=== PATIENT | female | born 1985 | race Caucasian/White ===

== ENCOUNTER 2019-07-05 15:04 | Inpatient (IN) | payer SELFPAY ==
[~2019-07-05 15:04] MED LIST: PHENYLEPHRINE HCL INJ/PF 10 MG/1 ML SDV ONE
[2019-07-05 16:17] LABS: ABSOLUTE EOSINOPHILS # (AUTO) 0.1 10^3/uL (0.0-0.6); ABSOLUTE LYMPHOCYTES (AUTO) 2.3 10^3/uL (0.5-4.7); ABSOLUTE MONOCYTES (AUTO) 0.9 10^3/uL (0.1-1.4); ABSOLUTE NEUT (AUTO) 8.9 10^3/uL (1.7-8.2); BASOPHILS % (AUTO) 0.2 % (0-2); EOSINOPHILS % (AUTO) 0.7 % (0-6); HEMOGLOBIN 11.7 g/dL (12.0-15.5); LYMPHOCYTES % (AUTO) 18.9 % (13-45); MEAN CORPUSCULAR HEMOGLOBIN 33.2 pg (27.0-33.4); MEAN CORPUSCULAR HGB CONC 36.6 g/dL (32.0-36.0); MEAN CORPUSCULAR VOLUME 91 fl (80-97); MONOCYTES % (AUTO) 7.2 % (3-13); PLATELET COUNT 335 10^3/uL (150-450); RED BLOOD COUNT 3.53 10^6/uL (3.72-5.28); RED CELL DISTRIBUTION WIDTH 14.6 % (11.5-14.0); TOTAL CELLS COUNTED % (AUTO) 100 %; WHITE BLOOD COUNT 12.2 10^3/uL (4.0-10.5)
[2019-07-05 16:20] LABS: APPEARANCE,URINE CLOUDY; BILIRUBIN,URINE NEGATIVE (NEGATIVE); COLOR,URINE AMBER; GLUCOSE, URINE NEGATIVE (NEGATIVE); KETONES,URINE NEGATIVE (NEGATIVE); LEUKOCYTE ESTERASE,URINE TRACE (NEGATIVE); NITRITE,URINE NEGATIVE (NEGATIVE); PROTEIN,URINE 100 mg/dL (NEGATIVE); URINE SPECIFIC GRAVITY 1.023; UROBILINOGEN,URINE NEGATIVE mg/dL (<2.0)
[2019-07-05 16:37] LABS: URINE AMPHETAMINES SCREEN NEGATIVE; URINE BARBITURATES SCREEN NEGATIVE; URINE BENZODIAZEPINES SCREEN NEGATIVE; URINE COCAINE SCREEN NEGATIVE; URINE MARIJUANA (THC) SCREEN NEGATIVE; URINE METHADONE SCREEN NEGATIVE; URINE PHENCYCLIDINE SCREEN NEGATIVE
[2019-07-05] MEDS ORDERED: PENICILLIN G-K 5 MILLION UNIT VIAL ONE (17:20)
--- NOTE | 2019-07-05 17:31 | Admission Physical ---
Datetime Report Generated by CPN: 07/05/2019 17:31 CURRENT ADMISSION Chief Complaint: Uterine Contractions; Suspected Ruptured Membranes Chief Complaint Other: 34 yo at unknown gestational age-she has had no care and delivered last baby 13 years ago at [facility] at which time she had failure to progress after dilation to 6 cm. She denies LOF or VB but was noted to have fluid on vaginal exam here and Actim prom was positive here. She reports no PNC, taking PNV, no medical history other than CS x1 as above. NO other surgeries. No hx of alcohol or drug use per patient. Admit Impression : Active Labor; Ruptured Membranes Admit Plan: Admit to Unit; Initiate Labor Protocol ALLERGIES Medication Allergies: No Known Allergies (07/05/2019) PHYSICAL EXAM General: Normal HEENT: Normal Neurologic: Normal Thyroid: Normal Heart: Normal Lungs: Normal Breast: Normal Back: Normal Abdomen: Normal Genitourinary Exam: Normal Extremities: Normal DTRs: Normal Pelvic Type: Adequate Vital Signs: Reviewed VAGINAL EXAM Dilatation: 1 Effacement: 25 Station: -3 Contraction Comments: irregular MEMBRANES Pooling: Positive Membranes: Ruptured Amniotic Fluid Color: Clear FETUS A Monitoring: External US FHR- Baseline: 125 Variability: Moderate 6-25bpm Accelerations: 15X15 Decelerations: None FHR Category: Category I FHR Comments: GBS unknown Presentation: Vertex Admit Comment: 34 yo at unknown gestational age. SHe states LMP was sometime in early September and by her estimates she is 41 weeks. Early September would actually make her approximately 39 weeks EGA SHe has ruptured membranes, clear fluid and corinna. Hx of PCS without records. Nursing is trying to get records of her CS. IF able to do so and transverse uterine scar, then patient desires TOLAC. -Admit to LDR -NPO and IVFs -PCN for GBS unknown -Will attempt to get records of prior CS. If unable will plan RCS -CEFM and toco -LAbs ordered, including type and screen with labs -Desires epidural if TOLAC is possible. Plans breast feeding. INFORMED CONSENT Informed Consent Obtained: Vaginal Delivery; Section Delivery; Vaginal After ; Vacuum/Forceps Assist; Risks, Benefits and Alternatives Discussed Signature: with User ID: Kim : with User ID: Kim
[2019-07-05] MEDS ORDERED: PENICILLIN G POTASSIUM 5,000,000 UNIT in DEXTROSE 5%-WATER 100 ML IV ONE (17:42)
[2019-07-05 17:57] LABS: CHLAM PCR NOT DETECTED (NOT DETECT)
[2019-07-05] MEDS: RINGERS SOLUTION,LACTATED 1,000 ML IV PRN (18:00)
--- NOTE | 2019-07-05 19:13 | RADIOLOGY REPORT (SQ) ---
EXAM DESCRIPTION: U/S OB LIMITED COMPLETED DATE/TIME: 07/05/2019 6:54 pm REASON FOR STUDY: no care at 41 weeks (per pt) COMPARISON: None. TECHNIQUE: Limited transabdominal grayscale ultrasound for evaluation of specific requested obstetri james parameters. LIMITATIONS: None. FINDINGS: EGA: 38 week 6 day. GILBERTO: 07/13/2019. EFW: 3781 g. CERVIX: Not visualized. NICK: 3.4 cm. FHR: 131 beats per minute. PRESENTATION: Cephalic. PLACENTA: Fundal ANATOMY: Not assessed OTHER: No other significant findings. IMPRESSION: LIMITED OBSTETRICAL ULTRASOUND WITH MEASURED PARAMETERS DELINEATED ABOVE. Trimester of : Third trimester - 28 weeks to delivery. TECHNICAL DOCUMENTATION: JOB ID: [id number] 2010 [employer] All Rights Reserved Reading location - IP/workstation name: [email or web address]
[2019-07-05] MEDS ORDERED: CEFAZOLIN SODIUM 1 GM in DEXTROSE 5%-WATER 50 ML IV PRN (20:20)
[2019-07-05] MEDS ORDERED: CITRIC ACID/SODIUM CITRATE ORAL SOLN 15 ML UDCUP ONE (20:52)
[2019-07-05] MEDS ORDERED: CEFAZOLIN 1 GM/D5W RTU 2 GM/100 ML RTUPB IV ONE (20:53)
[2019-07-05] MEDS ORDERED: OXYTOCIN 10 UNIT/ML VIAL ONE (21:05)
[2019-07-05] MEDS ORDERED: FENTANYL CITRATE INJ/PF 100 MCG/2 ML AMPUL ONE (21:06)
[2019-07-05] MEDS ORDERED: KETOROLAC TROMETHAMINE INJ/PF 30 MG/1 ML SDV ONE (21:06)
[2019-07-05] MEDS ORDERED: ACETAMINOPHEN 1,000 MG/100 ML RTUPB IV ONE (21:06)
[2019-07-05] MEDS ORDERED: EPHEDRINE SULFATE INJ 50 MG/1 ML AMPULE ONE (21:06)
[2019-07-05] MEDS ORDERED: OXYTOCIN/NORMAL SALINE 20 UNIT/1,000 ML RTUINJ ONE (21:06)
[2019-07-05] MEDS ORDERED: MIDAZOLAM 2 MG/2 ML INJ ONE (21:06)
[2019-07-05] MEDS ORDERED: ONDANSETRON HCL INJ/PF 4 MG/2 ML SDV ONE (21:07)
[2019-07-05] MEDS ORDERED: LIDOCAINE 2% INJ-PF (20 MG/ML) 10 ML AMPUL ONE (21:17)
[2019-07-05] MEDS ORDERED: OXYCODONE-ACETAMINOPHEN 5-325 MG TABLET PO PRN ×4 (22:10→23:16)
[2019-07-05] MEDS ORDERED: FENTANYL CITRATE INJ/PF 100 MCG/2 ML AMPUL IV PRN ×2 (22:10)
[2019-07-05] MEDS ORDERED: PROMETHAZINE HCL INJ 25 MG/1 ML VIAL IV PRN ×2 (22:10→23:16)
[2019-07-05] MEDS ORDERED: DIPHENHYDRAMINE HCL 50 MG/ML VIAL IV PRN (22:10)
[2019-07-05] MEDS ORDERED: MORPHINE SULFATE 10 MG/ML INJ IV PRN (22:10)
[2019-07-05] MEDS ORDERED: ONDANSETRON HCL INJ/PF 4 MG/2 ML SDV IV PRN (22:10)
[2019-07-05] MEDS: PENICILLIN G POTASSIUM 2,500,000 UNIT in DEXTROSE 5%-WATER 50 ML IV SCH (23:01)
[2019-07-05] MEDS ORDERED: ACETAMINOPHEN 325 MG TABLET PO PRN (23:16)
[2019-07-05] MEDS ORDERED: OXYTOCIN/NORMAL SALINE 20 UNIT/1,000 ML RTUINJ IV PRN (23:16)
[2019-07-05] MEDS ORDERED: SIMETHICONE 80 MG TAB.CHEW PO PRN (23:16)
[2019-07-05] MEDS ORDERED: MEASLES,MUMPS&RUBELLA VACC/PF 0.5 ML VIAL SUBCUT PRN (23:16)
[2019-07-05] MEDS ORDERED: DIPH/PERTUSS(ACELL)/TETANUS VAC/PF 0.5 ML SYR (>=10YO) IM PRN (23:16)
[2019-07-05] MEDS ORDERED: HYDROMORPHONE HCL INJ/PF 2 MG/ML AMPULE IV PRN (23:16)
--- NOTE | 2019-07-05 23:30 | Operative Report ---
Operative Report DATE OF SURGERY: 07/05/19 PREOPERATIVE DIAGNOSIS: Intrauterine at 38.9 wks by US dating today. No care . History of prior section x1. Obesity POSTOPERATIVE DIAGNOSIS: Same as above with addition of adhesions between omentum and anterior uterus with additional filmy adhesions between anterior abdominal wall and uterus OPERATION: Repeat section ANESTHESIA: Spinal TISSUE REMOVED OR ALTERED: Placenta COMPLICATIONS: None ESTIMATED BLOOD LOSS: 600 INTRAOPERATIVE FINDINGS: Dense adhesions between omentum and anterior uterus with additional filmy adhesions between anterior abdominal wall and uterus. Meconium stained amniotic fluid. Viable male infant PROCEDURE: IV fluids: per anesthesia record Urinary output: 200 cc Findings: Dense adhesion between anterior uterus and omentum as well as filmy adhesions between anterior abdominal wall and uterus. Bladder adherent to lower uterus. Male . Meconium stained fluid. Position: To recovery room in stable condition Description of procedure: The patient was taken to the operating room and general anesthesia was administered and found to be adequate. She was then placed on the OR table in the supine position with a slight leftward tilt. Patient was prepped and draped in usual sterile fashion. Ancef 2 gms was given IV prior to the procedure for infection prophylaxis. Timeout was taken. A Pfannenstiel skin incision was then made approximately 3 cm above the pubic symphysis and carried down to level the rectus fascia. The rectus fascia was then nicked in the midline with a scalpel and the fascial incision was extended laterally with use of curved Stephen scissors. The rectus fascia was then grasped with 2 Kocker clamps elevated and the underlying rectus muscle was dissected off both bluntly and sharply. Any bleeding controlled with cautery. The rectus muscles were then split in the mid line and the peritoneum was entered. The peritoneal incision was then extended by manually stretching the peritoneum. The bladder blade was positioned. The bladder was noted to be adhesed to lower uterine segment and pick ups with metzenbaum scissors were used to take down these adhesions. Bladder was moved out of harms way and a bladder blade positioned. A scalpel was then used in the lower uterine for the hysterotomy, slowly until amniotomy was obtained a large amount of fluid was noted. The uterine incision was then manually stretched. The was noted to be in vertex postion -deep in the pelvis. Using a hand deep in pelvis, the head was elevated and brought to the hysterotomy incision. The head then delivered with minmal difficulty. The shoulders and the rest of the body followed immediately. The cord was cut clamped and the infant was handed off to the nurse awaiting. was crying prior to hand off. The placenta was manually delivered. Using a lap gauze the uterus was cleared of all clots and debris. The uterus was not able to be exteriorized due to adhesions above and a bladder blade was repositioned. The uterine incision was then closed with 0 Chromic suture in a running locked fashion. A second layer of the same suture was used in a running locked imbricated fashion. The uterine incision was inspected and noted to be hemostatic. Warm saline irrigation was used to clear all clots and debris from the abdomen. The uterine incision was inspected once more and noted to remain hemostatic. The bladder blade was removed and the peritoneumand rectus muscles were then reapproximated The rectus fascia was closed with a #1 PDS in a running fashion. The subcutaneous tissue was then inspected and any bleeding was controlled with Bovie electrocautery. The subcutaneous tissue was then closed with 2-0 Plain Gut suture in a running fashion. The skin was then closed with 3-0 Monocryl in a running subcuticular fashion. The skin incision was then clean dried and Dermabond was applied over the skin incision. All instrument sponge and needle counts were correct x3 for the procedure the patient tolerated the procedure well. She will proceed to recovery room in sta ble condition
[2019-07-05] MEDS ORDERED: MEPERIDINE HCL/PF INJ 25 MG/1 ML DISP.SYRIN ONE (23:32)
--- NOTE | 2019-07-05 23:32 | PDOC DELIVERY SUMMARY ---
Delivery Summary - Maternal Hx : II Hx Para: I Hx # Term Pregnancies: 1 Hx # Pregnancies: 0 Hx Total # of Abortions (Sponateous & Elective): 0 Number of Living Children: 1 Gestational Age: 38.9 Risk Factors: No Care Ruptured Membranes: SROM Fluids: Meconium Stained - Delivery Presentation: Vertex Heart Rate Monitoring: Externally Uterine Contraction Monitoring: External Support Person Present: Yes Location: OR : Repeat Placenta: Within Normal Limits Nuchal Cord: No Delivery of Placenta Date: 07/05/19 Estimated Blood Loss: 600 - Medications Type of Anesthesia:: Spinal
[2019-07-05] MEDS: MEPERIDINE HCL/PF INJ 25 MG/1 ML DISP.SYRIN IV PRN (23:34)
[2019-07-06] MEDS: MEPERIDINE HCL/PF INJ 25 MG/1 ML DISP.SYRIN IV PRN (00:06)
--- NOTE | 2019-07-06 01:04 | Delivery Summary ---
Del Sum A-C Datetime Report Generated by CPN: 07/06/2019 01:04 DELIVERY PERSONNEL DELIVERY PERSONNEL: [id number] Delivery Doctor:: Tamy Tucker MD Anesthesiologist:: Arcenio Pate MD MANAGER GENERATION:: Leigh Ann Iyer [employer] Grader:: Erika Uriarte, RN Police Surgeon/BUSINESS INTELLIGENCE ARCHITECT: Tami Medina, FILTER CLEANER Police Surgeon/BUSINESS INTELLIGENCE ARCHITECT: Emily Ross, ST MATERNAL INFORMATION Delivery Anesthesia: Spinal Medications After Delivery: Pitocin Bolus-Please Comment Meds After Delivery Comment: pitocin 20 units Delivery QBL: 850 Maternal Complications: Other Complication Details: No PNC LABOR SUMMARY EDC: 06/28/2019 00:00 No. Babies in Womb: 1 Attempted: No Labor Anesthesia: None LABOR INFORMATION Reason for Induction: Not Applicable Onset of Labor: 07/06/2019 12:30 Oxytocin: N/A Group B Beta Strep: UNKNOWN Antibiotics # of Doses: 1 Antibiotics Time of Last Dose: 1800 Name of Antibiotic Given: penicillin G Steroids Given: None MEMBRANES Membranes Rupture Method: Spontaneous Rupture of Membranes: 07/05/2019 12:30 Length of Rupture (hr): 9.42 Amniotic Fluid Color: Clear Amniotic Fluid Amount: Small STAGES OF LABOR Stage 3 hr: 0 Stage 3 min: 1 Total Time in Labor hr: -14 Total Time in Labor min: -34 VAGINAL DELIVERY Episiotomy: None Laceration #1: None Laceration Extension #1: N/A Sponge Count Correct: N/A CSECTION DELIVERY Primary Indication: Repeat Elective Secondary Indication: N/A CSection Urgency: Non-Scheduled CSection Incidence: Repeat Labor: No Labor Elective: Elective CSection Incision: Lower Uterine Transverse BABY A INFORMATION Delivery Date/Time: 07/05/2019 21:55 Method of Delivery: Nurse Controlled Delivery: No Born in Route : No : N/A Forceps: N/A Vacuum Extraction: N/A Shoulder Dystocia : No PRESENTATION/POSITION BABY A Presentation: Cephalic Cephalic Presentation: Vertex PLACENTA INFORMATION BABY A Placenta Delivery Time : 07/05/2019 21:56 Placenta Method of Delivery: Manual Removal Placenta Status: Delivered SCORES BABY A Heart Rate 1 min: >100 bpm Resp Effort 1 min: Good Cry Reflex Irritability 1 min: Cough or Sneeze or Pulls Away Muscle Tone 1 min: Active Motion Color 1 min: Body [place], Extremities Blue Resuscitation Effort 1 min: Tactile Stimulation SCORE 1 MIN: 9 Heart Rate 5 min: >100 bpm Resp Effort 5 min: Good Cry Reflex Irritability 5 min: Cough or Sneeze or Pulls Away Muscle Tone 5 min: Active Motion Color 5 min: Body [place], Extremities Blue Resuscitation Effort 5 min: Tactile Stimulation SCORE 5 MIN: 9 INFORMATION BABY A Gestational Age at Delivery: 38.6 Gestational Status: Early Term- 37- 38.6 Weeks Infant Outcome : Liveborn Infant Condition : Stable Infant Sex: Male IDENTIFICATION BABY A Verification Date/Time: 07/05/2019 21:56 ID Band Number: [id number] Mother's Name Verified: Yes RN Verifying : Wendy Uriarte, RN and Andree Chaconin, RN WEIGHT/LENGTH BABY A Infant Birthweight (gm): 3800 Weight (lb): 8 Infant Weight (oz): 6 Length (in): 20.00 Length (cm): 50.80 CORD INFORMATION BABY A No. Cord Vessels: 3 Nuchal Cord : N/A Cord Blood Taken: Yes-For Storage (Mom's Blood type +) ASSESSMENT BABY A Infant Complications: None Physical Findings at Delivery: Within Normal Limits Respirations: Appears Normal Skin to Skin: Yes Clinical Research Scientist/ALS Called : No Infant Care By: Mele Cain Transferred To: Nursery
[2019-07-06] MEDS ORDERED: INFLUENZA QUAD (6MOS+) 2019-20 VAC 0.5 ML SYR IM ONE (01:16)
[2019-07-06] MEDS: KETOROLAC TROMETHAMINE INJ/PF 30 MG/1 ML SDV IV SCH ×3 (03:06→14:40)
[2019-07-06] MEDS: RINGERS SOLUTION,LACTATED 1,000 ML IV PRN (04:00)
[2019-07-06 07:57] LABS: HEMATOCRIT 26.4 % (36.0-47.0); MEAN CORPUSCULAR HEMOGLOBIN 31.1 pg (27.0-33.4); MEAN CORPUSCULAR VOLUME 92 fl (80-97); PLATELET COUNT 272 10^3/uL (150-450); RED BLOOD COUNT 2.89 10^6/uL (3.72-5.28); RED CELL DISTRIBUTION WIDTH 14.5 % (11.5-14.0); WHITE BLOOD COUNT 13.3 10^3/uL (4.0-10.5)
--- NOTE | 2019-07-06 09:45 | PDOC PROGRESS REPORT ---
Subjective-OB Progress Note for:: 07/06/19 Subjective: Doing well, holding baby, hsb in room, has not been OOB, passing gas Physical Exam (OB) Vital Signs: Temp Pulse Resp BP Pulse Ox 98.0 F 73 17 124/71 98 07/06/19 08:01 07/06/19 08:01 07/06/19 08:01 07/06/19 08:01 07/06/19 08:01 Intake & Output 07/05/19 07/06/19 07/07/19 06:59 06:59 06:59 Intake Total 1500 Output Total 400 Balance 1100 Weight 90.5 kg - Lochia Lochia Amount: Small 10-25 ml Lochia Color: Rubra/Red - Abdomen Fundal Description: Firm, Midline Fundal Height: u/u - u/2 Objective-Diagnostic Laboratory: 07/06/19 07:35 07/05/19 07/05/19 07/05/19 15:30 15:55 15:55 WBC 12.2 H RBC 3.53 L Hgb 11.7 L Hct 32.0 L MCV 91 MCH 33.2 MCHC 36.6 H RDW 14.6 H Plt Count 335 Seg Neutrophils % 73.0 Urine Color NAKUL Urine Appearance CLOUDY Urine pH 6.0 Ur Specific [place] 1.023 Urine Protein 100 H Urine Glucose (UA) NEGATIVE Urine Ketones NEGATIVE Urine Blood NEGATIVE Urine Nitrite NEGATIVE Ur Leukocyte Esterase TRACE H Blood Type A POSITIVE Antibody Screen NEGATIVE 07/06/19 07:35 WBC 13.3 H RBC 2.89 L Hgb 9.0 L D Hct 26.4 L MCV 92 MCH 31.1 MCHC 34.0 RDW 14.5 H Plt Count 272 Seg Neutrophils % Urine Color Urine Appearance Urine pH Ur Specific [place] Urine Protein Urine Glucose (UA) Urine Ketones Urine Blood Urine Nitrite Ur Leukocyte Esterase Blood Type Antibody Screen Assessment and Plan(PN) - Assessment and Plan (1) S/P repeat low transverse Is this a current diagnosis for this admission?: Yes - Time Spent with Patient Time with patient: Less than 15 minutes - Disposition Anticipated Discharge: Home Within: within 24 hours
[2019-07-06] MEDS: PRENATAL VITAMIN W DHA CAPSULE PO SCH (10:34)
[2019-07-06] MEDS: DOCUSATE SODIUM 100 MG CAPSULE PO SCH ×2 (10:34→17:29)
[2019-07-06] MEDS: PENICILLIN G POTASSIUM 2,500,000 UNIT in DEXTROSE 5%-WATER 50 ML IV SCH (11:46)
[2019-07-06] MEDS ORDERED: MEASLES,MUMPS&RUBELLA VACC/PF 0.5 ML VIAL SUBCUT PRN (15:30)
[2019-07-06] MEDS ORDERED: DIPH/PERTUSS(ACELL)/TETANUS VAC/PF 0.5 ML SYR (>=10YO) IM PRN (15:30)
[2019-07-06] MEDS ORDERED: PROMETHAZINE HCL INJ 25 MG/1 ML VIAL IV PRN (15:30)
[2019-07-06] MEDS: IBUPROFEN 800 MG TABLET PO SCH (22:56)
[2019-07-07] MEDS: IBUPROFEN 800 MG TABLET PO SCH ×2 (05:07→14:18)
[2019-07-07 08:37] LABS: HEPATITIS C VIRUS AB <0.1 s/co ratio (0.0-0.9)
[2019-07-07] MEDS: PRENATAL VITAMIN W DHA CAPSULE PO SCH (09:09)
[2019-07-07] MEDS: DOCUSATE SODIUM 100 MG CAPSULE PO SCH ×2 (09:09→18:22)
[2019-07-07 09:24] LABS: HEPATITS B SURFACE ANTIGEN Negative (Negative)
--- NOTE | 2019-07-07 11:45 | PDOC DISCHARGE SUMMARY ---
Impression - Admit/DC Date/PCP Admission Date/Primary Care Provider: 07/05/19 17:20 CARMEN BURNETT MD Discharge Date: 07/07/19 - POD #2, s/p Rpt , pt desires to go home today. , A+. No PNC - Discharge Diagnosis (1) No care in current Is this a current diagnosis for this admission?: Yes (2) Normal course Is this a current diagnosis for this admission?: Yes (3) S/P repeat low transverse Is this a current diagnosis for this admission?: Yes - Additional Information Resuscitation Status: Full Code Discharge Diet: As Tolerated, Regular Discharge Activity: Activity As Tolerated, No Lifting Over 10 Pounds, Pelvic Rest Referrals: [facility] [Provider Group] Prescriptions: Ibuprofen [Motrin 800 mg Tablet] 800 mg PO Q8 #60 tablet Oxycodone HCl/Acetaminophen [Percocet 5-325 mg Tablet] 1 tab PO Q4HP PRN #30 tablet PRN Reason: Pain Scale Of 4 Vit/Dha [ Multi + Dha Capsule] 1 cap PO DAILY #30 capsule Home Medications: Ibuprofen [Motrin 800 mg Tablet] 800 mg PO Q8 #60 tablet 07/07/19 Oxycodone HCl/Acetaminophen [Percocet 5-325 mg Tablet] 1 tab PO Q4HP PRN #30 tablet 07/07/19 Vit/Dha [ Multi + Dha Capsule] 1 cap PO DAILY #30 capsule 07/07/19 HPI Reason(s) for Admission: Onset of Labor Procedures: None Intrapartum Procedure(s): : Low Cervical, Transverse Results Laboratory Results: WBC 13.3 10^3/uL (4.0-10.5) H 07/06/19 07:35 RBC 2.89 10^6/uL (3.72-5.28) L 07/06/19 07:35 Hgb 9.0 g/dL (12.0-15.5) L D 07/06/19 07:35 Hct 26.4 % (36.0-47.0) L 07/06/19 07:35 MCV 92 fl (80-97) 07/06/19 07:35 MCH 31.1 pg (27.0-33.4) 07/06/19 07:35 MCHC 34.0 g/dL (32.0-36.0) 07/06/19 07:35 RDW 14.5 % (11.5-14.0) H 07/06/19 07:35 Plt Count 272 10^3/uL (150-450) 07/06/19 07:35 Lymph % (Auto) 18.9 % (13-45) 07/05/19 15:55 [place] % (Auto) 7.2 % (3-13) 07/05/19 15:55 Eos % (Auto) 0.7 % (0-6) 07/05/19 15:55 Baso % (Auto) 0.2 % (0-2) 07/05/19 15:55 Absolute Neuts (auto) 8.9 10^3/uL (1.7-8.2) H 07/05/19 15:55 Absolute Lymphs (auto) 2.3 10^3/uL (0.5-4.7) 07/05/19 15:55 Absolute Monos (auto) 0.9 10^3/uL (0.1-1.4) 07/05/19 15:55 Absolute Eos (auto) 0.1 10^3/uL (0.0-0.6) 07/05/19 15:55 Absolute Basos (auto) 0.0 10^3/uL (0.0-0.2) 07/05/19 15:55 Seg Neutrophils % 73.0 % (42-78) 07/05/19 15:55 Hemoglobin A1c % 5.2 % (4.7-6.0) 07/05/19 15:55 Urine Color NAKUL 07/05/19 15:30 Urine Appearance CLOUDY 07/05/19 15:30 Urine pH 6.0 (5.0-9.0) 07/05/19 15:30 Ur Specific [place] 1.023 07/05/19 15:30 Urine Protein 100 mg/dL (NEGATIVE) H 07/05/19 15:30 Urine Glucose (UA) NEGATIVE mg/dL (NEGATIVE) 07/05/19 15:30 Urine Ketones NEGATIVE mg/dL (NEGATIVE) 07/05/19 15:30 Urine Blood NEGATIVE (NEGATIVE) 07/05/19 15:30 Urine Nitrite NEGATIVE (NEGATIVE) 07/05/19 15:30 Urine Bilirubin NEGATIVE (NEGATIVE) 07/05/19 15:30 Urine Urobilinogen NEGATIVE mg/dL (<2.0) 07/05/19 15:30 Ur Leukocyte Esterase TRACE (NEGATIVE) H 07/05/19 15:30 Urine Ascorbic Acid 40 (NEGATIVE) H 07/05/19 15:30 Membranes Rupture POSITIVE (NEGATIVE) H 07/05/19 15:51 Urine Opiates Screen NEGATIVE 07/05/19 15:30 Urine Methadone Screen NEGATIVE 07/05/19 15:30 Ur Barbiturates Screen NEGATIVE 07/05/19 15:30 Ur Phencyclidine Scrn NEGATIVE 07/05/19 15:30 Ur Amphetamines Screen NEGATIVE 07/05/19 15:30 U Benzodiazepines Scrn NEGATIVE 07/05/19 15:30 Urine Cocaine Screen NEGATIVE 07/05/19 15:30 U Marijuana (THC) Screen NEGATIVE 07/05/19 15:30 RPR NONREACTIVE (NONREACTIVE) 07/05/19 15:55 Chlamydia DNA (PCR) NOT DETECTED (NOT DETECT) 07/05/19 15:30 Hep Bs Antigen Negative (Negative) 07/05/19 15:55 Hepatitis C (DYLAN) <0.1 s/co ratio (0.0-0.9) 07/05/19 15:55 Hep C Verif Com 1 Comment (.) 07/05/19 15:55 HIV 1&2 Antibody NEGATIVE (NEGATIVE) 07/05/19 15:55 N.gonorrhoeae DNA (PCR) NOT DETECTED (NOT DETECT) 07/05/19 15:30 Rubella IgG Antibody 7.32 IU/mL 07/05/19 15:55 Rubella IgG Ab Interp NEGATIVE 07/05/19 15:55 Blood Type A POSITIVE 07/05/19 15:55 Antibody Screen NEGATIVE 07/05/19 15:55 Impressions: Obstetrics Ultrasound 07/05/19 00:00 IMPRESSION: LIMITED OBSTETRICAL ULTRASOUND WITH MEASURED PARAMETERS DELINEATED ABOVE. Trimester of : Third trimester - 28 weeks to delivery. Plan Plan of Treatment: d/c home, f/up with [facility] in one wk for an incsion check Time Spent: Less than 30 Minutes
[2019-07-07 12:28] VITALS: BP 124/71
[2019-07-07 17:36] LABS: HGB A2 2.3 % (1.8-3.2); HGB SOLUBILITY RESULT Negative (Negative)
== END 2019-07-07 19:27 | disposition home or self-care (01) | DRG 788 ==
LOC: LC 15:04 → LR 17:20 → 2S 07-06 00:35
PROVIDERS: ADMIT Obstetrics & Gynecology; ATTEND Obstetrics & Gynecology
PROC: 10D00Z1 Extraction of Products of Conception, Low, Open Approach (ICD-10-PCS; principal; 2019-07-05)
PROC: 0UN40ZZ Release Uterine Supporting Structure, Open Approach (ICD-10-PCS; 2019-07-05)
PROC: 3E0234Z Introduction of Serum, Toxoid and Vaccine into Muscle, Percutaneous Approach (ICD-10-PCS; 2019-07-07)
DX: O34.211 Maternal care for low transverse scar from previous cesarean delivery (principal); N85.8 Other specified noninflammatory disorders of uterus; O77.0 Labor and delivery complicated by meconium in amniotic fluid; N73.6 Female pelvic peritoneal adhesions (postinfective); Z3A.39 39 weeks gestation of pregnancy; Z37.0 Single live birth; Z23 Encounter for immunization
CPT/HCPCS: 1961; 36415; 76815; 80307; 81005; 83020; 83036; 84112; 85025; 85027; 86592; 86701; 86762; 86803; 86804; 86850; 86900; 86901; 87081; 87340; 87491; 87591; 88307; 90686; 90707; 90715; 94760; 94799; J0131; J0690; J1885; J2175; J2250; J2370; J2405; J2540; J2590; J3010; J3490; J7120